=== PATIENT | female | born 1955 | race American Indian/Alaskan Native ===

== ENCOUNTER 2017-02-24 20:37 | Emergency (ER) | payer BC, OTHER ==
[2017-02-24 20:50] VITALS: BP 168/71
[2017-02-24 21:18] LABS: CHLORIDE,CL 100 mmol/L (101-111); SODIUM,NA 130 mmol/L (135-145)
[2017-02-25] MEDS ORDERED: Azithromycin 250 MG Tab PO ONE (00:56)
[2017-02-25] MEDS ORDERED: Benzonatate 100 MG Cap PO ONE (00:56)
--- NOTE | 2017-02-25 01:06 | EDM.PDOC ---
ED HISTORY OF PRESENT ILLNESS - General Chief Complaint: Chest Pain Stated Complaint: CHEST PAIN [id number] Time Seen by Provider: 02/25/17 00:55 Source of Information: Reports: Patient History Limitations: Reports: No limitations - History of Present Illness INITIAL COMMENTS - FREE TEXT/NARRATIVE: This 61 yo female patient reports to the ED with a 1 1/2 week history of a cough which now gives her chest pain when she coughs. The patient reports she has not been seen in the clinic for these symptoms, but tried today (could not get an appointment). The patient has been taking OTC cough medications for temporary symptom relief. Symptom Onset Date: 02/14/17 Timing/Duration: Reports: Constant, Getting worse Severity: moderate Location, General: Reports: chest Quality: Reports: Dull Worsens with: Reports: Other (coughing) Associated Symptoms (General): Reports: chest pain (due to cough), cough Treatments [employer]: Reports: Other medication(s) - Related Data Allergies/ADRs: Allergies Allergy/AdvReac Type Severity Reaction Status Date / Time sulfamethoxazole Allergy Nausea and Verified 03/10/15 09:37 [From Bactrim] Vomiting trimethoprim [From Bactrim] Allergy Nausea and Verified 03/10/15 09:37 Vomiting KEFLE Allergy Rash Uncoded 03/10/15 09:37 Home Meds: Home Meds sitaGLIPtin Phos/Metformin HCl [Janumet 50-500 mg Tablet] 1 each PO BID [History] Aspirin [Ecotrin] 81 mg PO DAILY 01/13/15 [History] Calcium Carbonate/Vitamin D3 [Calcium 250+D] 1 tab PO BID 01/13/15 [History] Losartan Potassium [Losartan Potassium] 25 mg PO DAILY 02/24/17 [History] Past Medical History Cardiovascular History: Reports: Hypertension, Stents Endocrine/Metabolic History: Reports: Diabetes, type II Social & Family History - Tobacco Use Smoking Status *Q: Current Every Day Smoker Years of Tobacco use: 45 Packs/Tins Daily: 0.3 Used Tobacco, but Quit: No Second Hand Smoke Exposure: Yes - Alcohol Use Days Per Week of Alcohol Use: 0 - Recreational Drug Use Recreational Drug Use: No ED ROS GENERAL - Review of Systems Review Of Systems: ROS reveals no pertinent complaints other than HPI. ED EXAM, GENERAL - Physical Exam Exam: See Below Exam Limited By: No limitations General Appearance: alert, WD/WN, mild distress Eye Exam: bilateral eye: EOMI, normal inspection, PERRL Ears: normal external exam, normal canal, hearing grossly normal, normal TMs Nose: normal inspection, normal mucosa, no blood Throat/Mouth: Normal inspection, Normal lips, Normal teeth, Normal gums, Normal oropharynx, Normal voice, No airway compromise Head: atraumatic, normocephalic Neck: normal inspection, supple, non-tender, full range of motion Respiratory/Chest: no respiratory distress, no accessory muscle use, chest non- tender, rhonchi (diffuse) Cardiovascular: normal peripheral pulses, regular rate, rhythm, no edema, no gallop, no JVD, no murmur, no rub GI/Abdominal: normal bowel sounds, soft, non tender, no organomegaly, no distention, no abnormal bruit, no mass (Female) Exam: Deferred Rectal (Female) Exam: Deferred Back Exam: normal inspection, full range of motion, NT Extremities: normal inspection, normal range of motion, non-tender, normal capillary refill, no pedal edema Neurological: alert, oriented, CN II-XII intact, normal cognition, normal gait, normal reflexes, no motor/sensory deficits Psychiatric: normal affect, normal mood Skin Exam: Warm, Dry, Intact, Normal color, No rash Lymphatic: no adenopathy Course - Vital Signs Last Recorded V/S: Last Vital Signs Temp 37.2 C 02/24/17 20:39 Pulse 84 02/24/17 20:39 Resp 18 02/24/17 20:39 BP 168/71 H 02/24/17 20:39 Pulse Ox 98 02/24/17 20:39 - Orders/Labs/Meds Orders: Active Orders 24 hr Category Date Time Status EKG Documentation Completion [RC] URGENT Care 02/24/17 20:49 Active Labs: Laboratory Tests 02/24/17 02/24/17 Range/Units 20:55 20:55 WBC 11.3 H (5.0-10.0) 10^3/uL RBC 3.35 L (4.2-5.4) 10^6/uL Hgb 9.8 L (12.0-16.0) g/dL Hct 29.7 L (37.0-47.0) % MCV 88.7 (80-100) fL MCH 29.3 (27.0-34.0) pg MCHC 33.0 (33.0-35.0) g/dL Plt Count 313 (150-450) 10^3/uL Neut % (Auto) 55.7 (42.2-75.2) % Lymph % (Auto) 29.0 (20.5-50.1) % [place] % (Auto) 11.6 H (2-8) % Eos % (Auto) 3.3 H (1.0-3.0) % Baso % (Auto) 0.4 (0.0-1.0) % Sodium 130 L (135-145) mmol/L Potassium 4.3 (3.6-5.0) mmol/L Chloride 100 L (101-111) mmol/L Carbon Dioxide 23.0 (21.0-31.0) mmol/L Anion Gap 11.3 BUN 30 H (7-18) mg/dL Creatinine 2.0 H (0.6-1.3) mg/dL Est Cr Clr Drug Dosing 20.68 mL/min Estimated GFR (MDRD) 25 BUN/Creatinine Ratio 15.00 Glucose 244 H (74-105) mg/dL Calcium 8.5 (8.4-10.2) mg/dl Total Bilirubin 0.4 (0.2-1.0) mg/dL AST 15 (10-42) IU/L ALT 11 (10-60) IU/L Alkaline Phosphatase 83 (42-121) IU/L Troponin I < 0.02 (0.00-0.02) ng/ml Total Protein 7.3 (6.7-8.2) g/dl Albumin 3.5 (3.2-5.5) g/dl Globulin 3.8 Albumin/Globulin Ratio 0.92 Meds: Medications Discontinued Medications Generic Name Dose Route Start Last Admin Trade Name Freq PRN Reason Stop Dose Admin Azithromycin 500 mg 02/25/17 00:56 Zithromax PO 02/25/17 00:57 ONETIME ONE Benzonatate 200 mg 02/25/17 00:56 Tessalon Perles PO 02/25/17 00:57 ONETIME ONE Departure - Departure Time of Disposition: 01:03 Disposition: Home, Self-Care 01 Condition: fair Clinical Impression: Bronchitis Instructions: Acute Bronchitis, [id number] Forms: ED Department Discharge Care Plan Goals: The patient was advised of the examination, lab, EKG and x-ray results during her visit. The patient was given a dose of Azithromycin and Tessalon Perles while in the ED. The patient was discharged with a script for Azithromycin (250 mg) #4 to take 1 by mouth daily and Tessalon Perles (200 mg) #30 to take 1 by mouth 3 times per day as needed. If the patient has any additional symptoms or concerns, the patient should follow-up with her primary care facility. - My Orders Last 24 Hours: My Active Orders 02/24/17 20:49 EKG Documentation Completion [RC] URGENT - Assessment/Plan Last 24 Hours: My Active Orders 02/24/17 20:49 EKG Documentation Completion [RC] URGENT
--- NOTE | 2017-03-19 14:46 | EKG ---
02/24/2017 - DAI RODRIGUEZ - EKG per my reading, shows sinus rhythm at a rate of 83. [facility] /[id number]
== END 2017-02-25 01:13 | disposition home or self-care (01) ==
LOC: DL.ED 20:37
DX: J40 Bronchitis, not specified as acute or chronic (principal); I10 Essential (primary) hypertension; E11.9 Type 2 diabetes mellitus without complications; F17.210 Nicotine dependence, cigarettes, uncomplicated; Z79.82 Long term (current) use of aspirin; Z79.899 Other long term (current) drug therapy; Z88.2 Allergy status to sulfonamides; Z88.1 Allergy status to other antibiotic agents
CPT/HCPCS: 36415; 71010; 80053; 84484; 85025; 93005; 99283; A9270

== ENCOUNTER 2022-12-09 05:22 | Day surgery (SDC) | payer MEDICARE, OTHER ==
[2022-12-09] MEDS ORDERED: Midazolam 1 MG/ML 2 ML SDV IV ONE ×3 (05:23→06:32)
[2022-12-09] MEDS ORDERED: fentaNYL 100 MCG/2 ML SDV IV ONE ×3 (05:23→06:31)
[2022-12-09] MEDS ORDERED: Dextrose 5%-0.45% NaCl 1,000 ML IV SCH (05:30)
[2022-12-09] MEDS ORDERED: Midazolam 1 MG/ML 2 ML SDV ONE (06:15)
[2022-12-09] MEDS ORDERED: fentaNYL 100 MCG/2 ML SDV ONE (06:16)
[2022-12-09 13:00] VITALS: BP 168/79; PULSE 74
== END 2022-12-09 09:30 | disposition home or self-care (01) ==
LOC: DL.ENDO 05:22
PROVIDERS: ATTEND Internal Medicine Gastroenterology
DX: K29.80 Duodenitis without bleeding (principal); K29.50 Unspecified chronic gastritis without bleeding; B96.81 Helicobacter pylori [H. pylori] as the cause of diseases classified elsewhere; D50.9 Iron deficiency anemia, unspecified; E78.5 Hyperlipidemia, unspecified; I25.10 Atherosclerotic heart disease of native coronary artery without angina pectoris; K21.9 Gastro-esophageal reflux disease without esophagitis; I12.9 Hypertensive chronic kidney disease with stage 1 through stage 4 chronic kidney disease, or unspecified chronic kidney disease; E11.22 Type 2 diabetes mellitus with diabetic chronic kidney disease; N18.9 Chronic kidney disease, unspecified; D63.1 Anemia in chronic kidney disease; F17.210 Nicotine dependence, cigarettes, uncomplicated; Z98.890 Other specified postprocedural states; Z79.82 Long term (current) use of aspirin; Z88.2 Allergy status to sulfonamides; Z95.5 Presence of coronary angioplasty implant and graft; Z79.899 Other long term (current) drug therapy
CPT/HCPCS: 87077; 88305; J2250; J3010; J7042

== ENCOUNTER 2022-12-15 19:54 | Emergency (ER) | payer OTHER, MEDICARE ==
[2022-12-15 20:33] VITALS: BP 147/69; PULSE 67
[2022-12-15 21:00] LABS: ANION GAP 15.8 mEq/L (7-13); CHLORIDE,CL 110 mmol/L (98-107); SODIUM,NA 140 mmol/L (136-145)
[2022-12-15 21:06] LABS: ESTIMATED GFR 26 mL/min (>=60)
== END 2022-12-15 21:22 | disposition home or self-care (01) ==
LOC: DL.ED 19:54
DX: E11.649 Type 2 diabetes mellitus with hypoglycemia without coma (principal); I12.9 Hypertensive chronic kidney disease with stage 1 through stage 4 chronic kidney disease, or unspecified chronic kidney disease; E11.22 Type 2 diabetes mellitus with diabetic chronic kidney disease; N18.9 Chronic kidney disease, unspecified; Z88.2 Allergy status to sulfonamides; Z88.1 Allergy status to other antibiotic agents; Z79.82 Long term (current) use of aspirin; Z79.4 Long term (current) use of insulin; Z79.899 Other long term (current) drug therapy
CPT/HCPCS: 36415; 80053; 82947; 83605; 84484; 85025; 87040; 93005; 93010; 99283; 99284

== ENCOUNTER 2023-01-03 12:45 | Inpatient (IN) | payer MEDICARE, OTHER ==
[2023-01-03] MEDS ORDERED: Sodium Chloride 0.9% 1,000 ML IV ONE (13:46)
[2023-01-03 14:00] LABS: ANION GAP 18.8 mEq/L (7-13)
[2023-01-03] MEDS ORDERED: Ondansetron 4 MG/2 ML SDV IVPUSH PRN (17:40)
[2023-01-03] MEDS ORDERED: Acetaminophen 325 MG Tab PO PRN (17:40)
[2023-01-03] MEDS ORDERED: Acetaminophen/HYDROcodone 325-5 MG Tab PO PRN (17:40)
[2023-01-03] MEDS ORDERED: Loperamide 2 MG Cap PO PRN (17:47)
[2023-01-03] MEDS: Sodium Chloride 0.9% 1,000 ML IV SCH (17:59)
[2023-01-03] MEDS ORDERED: Non-Formulary Medication 1 Each PO SCH (21:00)
[2023-01-03] MEDS: Heparin Sodium 5,000 Units/ML Vial SUBCUT SCH (21:01)
[2023-01-04 07:07] LABS: ANION GAP 14.1 mEq/L (7-13)
[2023-01-04] MEDS: Sodium Chloride 0.9% 1,000 ML IV SCH (07:13)
[2023-01-04] MEDS: Heparin Sodium 5,000 Units/ML Vial SUBCUT SCH ×2 (09:34→20:42)
[2023-01-04] MEDS ORDERED: 50% Dextrose in Water 50 ML Syringe IVPUSH PRN (12:08)
[2023-01-04] MEDS ORDERED: Glucagon,Human Recombinant 1 MG Vial IM PRN (12:08)
[2023-01-04] MEDS ORDERED: Loperamide 2 MG Cap PO PRN (12:16)
[2023-01-04] MEDS: Carboxymethylcellulose Sodium 1% Ophth Gel 0.4 ML UD EYEBOTH SCH ×3 (15:16→21:55)
[2023-01-04] MEDS: Insulin Lispro 100 Units/ML 3 ML Vial SUBCUT SCH ×2 (17:00→20:49)
[2023-01-04] MEDS ORDERED: MVI, Adult with Vitamin K 10 ML SDV ONE (17:18)
[2023-01-04] MEDS ORDERED: MVI, Adult with Vitamin K 10 ML, Folic Acid 1 MG, Thiamine 100 MG in Lactated Ringers 1... IV ONE ×4 (18:00)
[2023-01-04] MEDS: Simvastatin 40 MG Tab PO SCH (20:41)
[2023-01-04] MEDS: Gabapentin 300 MG Cap PO SCH (20:42)
[2023-01-04] MEDS ORDERED: Non-Formulary Medication 1 Each (Gabapentin 600 MG Tablet) PO SCH (21:00)
[2023-01-05] MEDS: Sodium Chloride 0.9% 1,000 ML IV SCH ×2 (01:37→16:33)
[2023-01-05 09:27] LABS: ANION GAP 12.4 mEq/L (7-13)
[2023-01-05] MEDS: Aspirin 81 MG Tab.EC PO SCH (09:36)
[2023-01-05] MEDS: Heparin Sodium 5,000 Units/ML Vial SUBCUT SCH ×2 (09:37→20:23)
[2023-01-05] MEDS: Carboxymethylcellulose Sodium 1% Ophth Gel 0.4 ML UD EYEBOTH SCH ×4 (09:38→20:23)
[2023-01-05] MEDS: Insulin Lispro 100 Units/ML 3 ML Vial SUBCUT SCH ×3 (09:40→17:27)
[2023-01-05] MEDS ORDERED: Pantoprazole 40 MG Vial IVPUSH ONE (12:00)
[2023-01-05] MEDS: Famotidine 20 MG Tab PO SCH (20:22)
[2023-01-05] MEDS: Gabapentin 300 MG Cap PO SCH (20:22)
[2023-01-05] MEDS: Simvastatin 40 MG Tab PO SCH (20:23)
[2023-01-06] MEDS: Sodium Chloride 0.9% 1,000 ML IV SCH (05:49)
[2023-01-06 06:44] LABS: ANION GAP 12.2 mEq/L (7-13)
[2023-01-06] MEDS ORDERED: Magnesium Sulfate/Water 2 GM in Premix Bag 1 BAG IV ONE (07:45)
[2023-01-06] MEDS ORDERED: Insulin Lispro 100 Units/ML 3 ML Vial SUBCUT SCH (08:00)
[2023-01-06] MEDS: Heparin Sodium 5,000 Units/ML Vial SUBCUT SCH (08:34)
[2023-01-06] MEDS: Aspirin 81 MG Tab.EC PO SCH (08:34)
[2023-01-06] MEDS: Famotidine 20 MG Tab PO SCH (08:35)
[2023-01-06] MEDS: Carboxymethylcellulose Sodium 1% Ophth Gel 0.4 ML UD EYEBOTH SCH (08:52)
[2023-01-06 12:13] VITALS: BP 97/45; PULSE 60
== END 2023-01-06 12:23 | disposition swing bed (61) | DRG 683 ==
LOC: DL.ED 12:45 → DL.MS 15:07
PROVIDERS: ADMIT Internal Medicine; ATTEND Internal Medicine
DX: N17.9 Acute kidney failure, unspecified (principal); E87.20 Acidosis, unspecified; E87.5 Hyperkalemia; I25.10 Atherosclerotic heart disease of native coronary artery without angina pectoris; I12.9 Hypertensive chronic kidney disease with stage 1 through stage 4 chronic kidney disease, or unspecified chronic kidney disease; E11.22 Type 2 diabetes mellitus with diabetic chronic kidney disease; N18.30 Chronic kidney disease, stage 3 unspecified; E78.5 Hyperlipidemia, unspecified; K86.89 Other specified diseases of pancreas; E86.0 Dehydration; R19.7 Diarrhea, unspecified; D53.9 Nutritional anemia, unspecified; E87.8 Other disorders of electrolyte and fluid balance, not elsewhere classified; E11.65 Type 2 diabetes mellitus with hyperglycemia; K76.0 Fatty (change of) liver, not elsewhere classified; E83.42 Hypomagnesemia; K57.30 Diverticulosis of large intestine without perforation or abscess without bleeding; I95.89 Other hypotension; Z90.49 Acquired absence of other specified parts of digestive tract; Z95.5 Presence of coronary angioplasty implant and graft; Z79.4 Long term (current) use of insulin; Z79.52 Long term (current) use of systemic steroids; Z79.82 Long term (current) use of aspirin; Z79.899 Other long term (current) drug therapy; Z88.2 Allergy status to sulfonamides; Z88.8 Allergy status to other drugs, medicaments and biological substances; Z88.1 Allergy status to other antibiotic agents; Z98.42 Cataract extraction status, left eye; Z98.41 Cataract extraction status, right eye; Z98.890 Other specified postprocedural states
CPT/HCPCS: 36415; 72195; 74181; 76770; 80048; 80053; 81001; 82150; 82272; 82947; 83605; 83690; 83735; 85025; 85651; 86140; 87045; 87046; 87086; 87088; 87186; 87328; 87329; 87493; 87899; 97110-GP; 97116-GP; 97161-GP; 97165-GO; 97530-GO; 99222; 99232; 99238; A9270-GY; C9113; J1644; J3411; J3475; J3490; J7030; J7120

== ENCOUNTER 2023-01-06 12:23 | Inpatient (IN) | payer MEDICARE, OTHER ==
[~2023-01-06 12:23] MED LIST: 50% Dextrose in Water 50 ML Syringe IVPUSH PRN; Acetaminophen 325 MG Tab PO PRN; Acetaminophen/HYDROcodone 325-5 MG Tab PO PRN; Glucagon,Human Recombinant 1 MG Vial IM PRN
[2023-01-06] MEDS ORDERED: Non-Formulary Medication 1 Each PO SCH (13:00)
[2023-01-06] MEDS: Amylase/Lipase/Protease 12,000 Unit Cap.CR PO SCH (17:15)
[2023-01-06] MEDS: Insulin Lispro 100 Units/ML 3 ML Vial SUBCUT SCH (17:16)
[2023-01-06] MEDS: Famotidine 20 MG Tab PO SCH (20:51)
[2023-01-06] MEDS: Gabapentin 300 MG Cap PO SCH (20:51)
[2023-01-06] MEDS: Simvastatin 40 MG Tab PO SCH (20:51)
[2023-01-06] MEDS: Heparin Sodium 5,000 Units/ML Vial SUBCUT SCH (20:51)
[2023-01-07 06:59] LABS: ANION GAP 15.8 mEq/L (7-13)
[2023-01-07] MEDS: Famotidine 20 MG Tab PO SCH ×2 (08:19→22:08)
[2023-01-07] MEDS: Heparin Sodium 5,000 Units/ML Vial SUBCUT SCH ×2 (08:19→22:13)
[2023-01-07] MEDS: Aspirin 81 MG Tab.EC PO SCH (08:19)
[2023-01-07] MEDS: Amylase/Lipase/Protease 12,000 Unit Cap.CR PO SCH ×3 (08:19→17:07)
[2023-01-07] MEDS: Insulin Lispro 100 Units/ML 3 ML Vial SUBCUT SCH ×3 (08:20→17:07)
[2023-01-07] MEDS: Loperamide 2 MG Cap PO PRN ×2 (09:11→22:11)
[2023-01-07] MEDS ORDERED: Midodrine 2.5 MG Tab PO PRN (19:35)
[2023-01-07] MEDS ORDERED: Sodium Bicarbonate 50 MEQ in Dextrose 5%-0.45% NaCl 1,000 ML IV SCH (19:45)
[2023-01-07] MEDS: Sodium Bicarbonate 650 MG Tab PO SCH (22:09)
[2023-01-07] MEDS: Gabapentin 300 MG Cap PO SCH (22:09)
[2023-01-07] MEDS: Simvastatin 40 MG Tab PO SCH (22:09)
[2023-01-07] MEDS: Midodrine 2.5 MG Tab PO PRN (22:46)
[2023-01-08 06:54] LABS: ANION GAP 13.9 mEq/L (7-13)
[2023-01-08] MEDS: Amylase/Lipase/Protease 12,000 Unit Cap.CR PO SCH ×3 (08:01→17:24)
[2023-01-08] MEDS: Insulin Lispro 100 Units/ML 3 ML Vial SUBCUT SCH ×3 (08:02→17:25)
[2023-01-08] MEDS: Heparin Sodium 5,000 Units/ML Vial SUBCUT SCH ×2 (08:03→21:06)
[2023-01-08] MEDS: Loperamide 2 MG Cap PO PRN (08:05)
[2023-01-08] MEDS: Sodium Bicarbonate 650 MG Tab PO SCH ×2 (08:06→21:04)
[2023-01-08] MEDS: Famotidine 20 MG Tab PO SCH (08:06)
[2023-01-08] MEDS: Aspirin 81 MG Tab.EC PO SCH (08:06)
[2023-01-08] MEDS: Amylase/Lipase/Protease 12,000 Unit Cap.CR PO PRN (11:49)
[2023-01-08 13:45] LABS: ANION GAP 15.3 mEq/L (7-13)
[2023-01-08] MEDS ORDERED: Sodium Chloride 0.9% 1,000 ML IV ONE (13:56)
[2023-01-08] MEDS: Pantoprazole 40 MG Tab.CR PO SCH (17:23)
[2023-01-08 18:14] LABS: ANION GAP 14.6 mEq/L (7-13)
[2023-01-08] MEDS ORDERED: Gabapentin 100 MG Cap PO SCH (21:00)
[2023-01-08] MEDS: Simvastatin 40 MG Tab PO SCH (21:05)
[2023-01-09] MEDS: Amylase/Lipase/Protease 12,000 Unit Cap.CR PO PRN (03:34)
[2023-01-09] MEDS: Pantoprazole 40 MG Tab.CR PO SCH ×2 (06:18→17:03)
[2023-01-09] MEDS: Insulin Lispro 100 Units/ML 3 ML Vial SUBCUT SCH ×3 (08:03→17:03)
[2023-01-09] MEDS: Amylase/Lipase/Protease 12,000 Unit Cap.CR PO SCH ×3 (08:03→17:03)
[2023-01-09] MEDS: Aspirin 81 MG Tab.EC PO SCH (08:04)
[2023-01-09] MEDS: Heparin Sodium 5,000 Units/ML Vial SUBCUT SCH ×2 (08:04→22:09)
[2023-01-09] MEDS: Sodium Bicarbonate 650 MG Tab PO SCH ×2 (08:04→22:06)
[2023-01-09] MEDS ORDERED: Hydrochlorothiazide 25 MG Tab PO ONE (11:24)
[2023-01-09] MEDS: Thiamine 100 MG Tab PO SCH (22:06)
[2023-01-09] MEDS: Simvastatin 40 MG Tab PO SCH (22:06)
[2023-01-09] MEDS: Gabapentin 100 MG Cap PO SCH (22:07)
[2023-01-10] MEDS: Pantoprazole 40 MG Tab.CR PO SCH ×2 (06:08→16:50)
[2023-01-10] MEDS: Amylase/Lipase/Protease 12,000 Unit Cap.CR PO SCH ×3 (08:06→16:50)
[2023-01-10] MEDS: Heparin Sodium 5,000 Units/ML Vial SUBCUT SCH ×2 (08:07→20:19)
[2023-01-10] MEDS: Insulin Lispro 100 Units/ML 3 ML Vial SUBCUT SCH ×3 (08:08→16:51)
[2023-01-10] MEDS: Sodium Bicarbonate 650 MG Tab PO SCH ×2 (08:09→20:18)
[2023-01-10] MEDS: Aspirin 81 MG Tab.EC PO SCH (08:09)
[2023-01-10] MEDS: Loperamide 2 MG Cap PO PRN (09:43)
[2023-01-10] MEDS: Prenatal Multivitamin with Calcium/Folic Acid/Iron Tab PO SCH (17:58)
[2023-01-10 18:22] LABS: ANION GAP 14.6 mEq/L (7-13)
[2023-01-10] MEDS: Gabapentin 100 MG Cap PO SCH (20:17)
[2023-01-10] MEDS: Simvastatin 40 MG Tab PO SCH (20:18)
[2023-01-10] MEDS: Amylase/Lipase/Protease 12,000 Unit Cap.CR PO PRN (20:18)
[2023-01-10] MEDS: Thiamine 100 MG Tab PO SCH (20:18)
[2023-01-11] MEDS: Pantoprazole 40 MG Tab.CR PO SCH ×2 (05:50→16:33)
[2023-01-11] MEDS: Sodium Bicarbonate 650 MG Tab PO SCH ×2 (08:59→20:43)
[2023-01-11] MEDS: Insulin Lispro 100 Units/ML 3 ML Vial SUBCUT SCH ×3 (09:00→17:22)
[2023-01-11] MEDS: Aspirin 81 MG Tab.EC PO SCH (09:00)
[2023-01-11] MEDS: Heparin Sodium 5,000 Units/ML Vial SUBCUT SCH ×2 (09:00→20:41)
[2023-01-11] MEDS: Amylase/Lipase/Protease 12,000 Unit Cap.CR PO SCH ×4 (09:07→16:33)
[2023-01-11] MEDS: Prenatal Multivitamin with Calcium/Folic Acid/Iron Tab PO SCH (17:23)
[2023-01-11] MEDS: Gabapentin 100 MG Cap PO SCH (20:41)
[2023-01-11] MEDS: Simvastatin 40 MG Tab PO SCH (20:42)
[2023-01-11] MEDS: Loperamide 2 MG Cap PO PRN (20:42)
[2023-01-11] MEDS: Midodrine 2.5 MG Tab PO PRN (20:42)
[2023-01-11] MEDS: Thiamine 100 MG Tab PO SCH (20:43)
[2023-01-12] MEDS: Pantoprazole 40 MG Tab.CR PO SCH ×3 (04:16→16:47)
[2023-01-12 06:16] LABS: ANION GAP 14.9 mEq/L (7-13)
[2023-01-12] MEDS: Amylase/Lipase/Protease 12,000 Unit Cap.CR PO SCH ×3 (07:42→16:48)
[2023-01-12 07:56] VITALS: BP 128/59; PULSE 82
[2023-01-12] MEDS: Aspirin 81 MG Tab.EC PO SCH (08:18)
[2023-01-12] MEDS: Loperamide 2 MG Cap PO PRN (08:18)
[2023-01-12] MEDS: Sodium Bicarbonate 650 MG Tab PO SCH (08:18)
[2023-01-12] MEDS: Insulin Lispro 100 Units/ML 3 ML Vial SUBCUT SCH ×2 (08:19→12:16)
[2023-01-12] MEDS: Heparin Sodium 5,000 Units/ML Vial SUBCUT SCH (08:19)
[2023-01-12] MEDS ORDERED: Sodium Chloride 0.9% 500 ML IV SCH (10:30)
[2023-01-12] MEDS ORDERED: Dextrose 5%-0.45% NaCl 1,000 ML IV SCH (16:00)
[2023-01-12] MEDS ORDERED: Gabapentin 100 MG Cap PO SCH (21:00)
[2023-01-13] MEDS ORDERED: Sodium Bicarbonate 650 MG Tab PO SCH (09:00)
== END 2023-01-12 17:20 | DRG 439 ==
LOC: DL.MS 12:23
PROVIDERS: ADMIT Internal Medicine; ATTEND Internal Medicine
DX: K86.89 Other specified diseases of pancreas (principal); E87.20 Acidosis, unspecified; N17.9 Acute kidney failure, unspecified; Z93.0 Tracheostomy status; E78.5 Hyperlipidemia, unspecified; I25.10 Atherosclerotic heart disease of native coronary artery without angina pectoris; I12.9 Hypertensive chronic kidney disease with stage 1 through stage 4 chronic kidney disease, or unspecified chronic kidney disease; K57.90 Diverticulosis of intestine, part unspecified, without perforation or abscess without bleeding; N18.30 Chronic kidney disease, stage 3 unspecified; E11.22 Type 2 diabetes mellitus with diabetic chronic kidney disease; E11.65 Type 2 diabetes mellitus with hyperglycemia; D63.1 Anemia in chronic kidney disease; Z90.49 Acquired absence of other specified parts of digestive tract; Z79.4 Long term (current) use of insulin; Z79.82 Long term (current) use of aspirin; Z79.899 Other long term (current) drug therapy; Z95.5 Presence of coronary angioplasty implant and graft; Z79.52 Long term (current) use of systemic steroids; Z98.42 Cataract extraction status, left eye; Z98.41 Cataract extraction status, right eye
CPT/HCPCS: 36415; 80048; 82947; 83735; 85025; 85651; 86140; 97110-GP; 97116-GP; 97161-GP; 97165-GO; 97530-GO; 97535-GO; A9270-GY; J1644; J1815-GY; J3490; J7030; J7042

== ENCOUNTER 2023-01-18 10:44 | Inpatient (IN) | payer MEDICARE, OTHER ==
[2023-01-19] MEDS ORDERED: Amylase/Lipase/Protease 12,000 Unit Cap.CR PO SCH (17:14)
[2023-01-19] MEDS ORDERED: Acetaminophen 325 MG Tab PO PRN (18:59)
[2023-01-19] MEDS ORDERED: Promethazine 25 MG/ML SDV IM PRN (19:06)
[2023-01-19] MEDS ORDERED: Ondansetron 4 MG Tab.DIS PO PRN ×2 (19:06→19:10)
[2023-01-19] MEDS ORDERED: Polyethylene Glycol 3350 Powder 17 GM Packet PO PRN (19:06)
[2023-01-19] MEDS ORDERED: Albuterol/Ipratropium 3.0-0.5 MG/3 ML Neb Soln NEB PRN (19:06)
[2023-01-19] MEDS ORDERED: Magnesium Hydroxide 400 MG/5 ML Susp 30 ML Cup PO PRN (19:06)
[2023-01-19] MEDS ORDERED: Metoclopramide 10 MG Tab PO PRN (19:10)
[2023-01-19] MEDS ORDERED: Midodrine 2.5 MG Tab PO PRN (19:10)
[2023-01-19] MEDS ORDERED: Amylase/Lipase/Protease 12,000 Unit Cap.CR PO PRN (19:15)
[2023-01-19] MEDS ORDERED: 50% Dextrose in Water 50 ML Syringe IVPUSH PRN (19:16)
[2023-01-19] MEDS ORDERED: Glucagon,Human Recombinant 1 MG Vial IM PRN (19:16)
[2023-01-19] MEDS: Pantoprazole 40 MG Tab.CR PO SCH (20:41)
[2023-01-19] MEDS: Sodium Bicarbonate 650 MG Tab PO SCH (20:41)
[2023-01-19] MEDS: Thiamine 100 MG Tab PO SCH (20:41)
[2023-01-19] MEDS: Acetaminophen 500 MG Tab PO SCH (20:41)
[2023-01-19] MEDS: Gabapentin 100 MG Cap PO SCH (20:42)
[2023-01-19] MEDS: Carboxymethylcellulose Sodium 1% Ophth Gel 0.4 ML UD EYEBOTH SCH (20:42)
[2023-01-19] MEDS: Insulin Glarg,Human.Rec.Analog 100 Unit/ML SUBCUT SCH (20:44)
[2023-01-20] MEDS: Amylase/Lipase/Protease 12,000 Unit Cap.CR PO SCH ×3 (07:52→16:50)
[2023-01-20] MEDS: Loperamide 2 MG Cap PO PRN ×4 (07:52→20:57)
[2023-01-20] MEDS: Insulin Lispro 100 Units/ML 3 ML Vial SUBCUT SCH ×3 (07:57→17:17)
[2023-01-20] MEDS: Sodium Bicarbonate 650 MG Tab PO SCH ×3 (09:16→20:49)
[2023-01-20] MEDS: Simvastatin 10 MG Tab PO SCH (09:16)
[2023-01-20] MEDS: Aspirin 81 MG Tab.Chew PO SCH (09:17)
[2023-01-20] MEDS: Pantoprazole 40 MG Tab.CR PO SCH ×2 (09:17→20:49)
[2023-01-20] MEDS: Metoprolol Succinate 25 MG Tab.ER PO SCH (09:17)
[2023-01-20] MEDS: Acetaminophen 500 MG Tab PO SCH ×3 (09:18→20:48)
[2023-01-20] MEDS: Carboxymethylcellulose Sodium 1% Ophth Gel 0.4 ML UD EYEBOTH SCH ×4 (09:21→20:51)
[2023-01-20] MEDS: CHOLESTYRAMINE PO SCH (12:01)
[2023-01-20] MEDS: SODIUM ZIRCONIUM CYCLOSILICATE PO SCH (17:14)
[2023-01-20] MEDS: Gabapentin 100 MG Cap PO SCH (20:49)
[2023-01-20] MEDS: Thiamine 100 MG Tab PO SCH (20:49)
[2023-01-20] MEDS: Melatonin 3 MG Tab PO PRN (20:49)
[2023-01-20] MEDS: Insulin Glarg,Human.Rec.Analog 100 Unit/ML SUBCUT SCH (20:59)
[2023-01-21] MEDS: SODIUM ZIRCONIUM CYCLOSILICATE PO SCH (05:23)
[2023-01-21] MEDS: Amylase/Lipase/Protease 12,000 Unit Cap.CR PO SCH ×3 (07:53→16:58)
[2023-01-21] MEDS: Insulin Lispro 100 Units/ML 3 ML Vial SUBCUT SCH ×3 (08:22→17:27)
[2023-01-21] MEDS: Metoprolol Succinate 25 MG Tab.ER PO SCH (08:47)
[2023-01-21] MEDS: Acetaminophen 500 MG Tab PO SCH ×3 (08:48→21:53)
[2023-01-21] MEDS: Aspirin 81 MG Tab.Chew PO SCH (08:49)
[2023-01-21] MEDS: Sodium Bicarbonate 650 MG Tab PO SCH ×3 (08:49→21:53)
[2023-01-21] MEDS: Pantoprazole 40 MG Tab.CR PO SCH ×2 (08:49→21:53)
[2023-01-21] MEDS: Simvastatin 10 MG Tab PO SCH (08:50)
[2023-01-21] MEDS: Carboxymethylcellulose Sodium 1% Ophth Gel 0.4 ML UD EYEBOTH SCH ×5 (09:01→21:53)
[2023-01-21] MEDS: CHOLESTYRAMINE PO SCH (12:54)
[2023-01-21] MEDS: Gabapentin 100 MG Cap PO SCH (21:52)
[2023-01-21] MEDS: Thiamine 100 MG Tab PO SCH (21:53)
[2023-01-21] MEDS: Melatonin 3 MG Tab PO PRN (21:56)
[2023-01-21] MEDS: Insulin Glarg,Human.Rec.Analog 100 Unit/ML SUBCUT SCH (21:57)
[2023-01-22] MEDS: SODIUM ZIRCONIUM CYCLOSILICATE PO SCH (05:07)
[2023-01-22] MEDS: Amylase/Lipase/Protease 12,000 Unit Cap.CR PO SCH ×3 (07:48→16:49)
[2023-01-22] MEDS: Insulin Lispro 100 Units/ML 3 ML Vial SUBCUT SCH ×3 (07:51→16:49)
[2023-01-22] MEDS: Acetaminophen 500 MG Tab PO SCH ×3 (08:58→21:01)
[2023-01-22] MEDS: Sodium Bicarbonate 650 MG Tab PO SCH ×3 (09:00→21:01)
[2023-01-22] MEDS: Pantoprazole 40 MG Tab.CR PO SCH ×2 (09:00→21:02)
[2023-01-22] MEDS: Simvastatin 10 MG Tab PO SCH (09:00)
[2023-01-22] MEDS: Metoprolol Succinate 25 MG Tab.ER PO SCH (09:01)
[2023-01-22] MEDS: Carboxymethylcellulose Sodium 1% Ophth Gel 0.4 ML UD EYEBOTH SCH ×4 (09:02→21:07)
[2023-01-22] MEDS: Aspirin 81 MG Tab.Chew PO SCH (09:02)
[2023-01-22] MEDS: CHOLESTYRAMINE PO SCH (13:02)
[2023-01-22] MEDS: Loperamide 2 MG Cap PO PRN (16:50)
[2023-01-22] MEDS: Melatonin 3 MG Tab PO PRN (21:01)
[2023-01-22] MEDS: Gabapentin 100 MG Cap PO SCH (21:02)
[2023-01-22] MEDS: Thiamine 100 MG Tab PO SCH (21:04)
[2023-01-22] MEDS: Insulin Glarg,Human.Rec.Analog 100 Unit/ML SUBCUT SCH (21:09)
[2023-01-23] MEDS: SODIUM ZIRCONIUM CYCLOSILICATE PO SCH (05:22)
[2023-01-23 06:48] LABS: ANION GAP 13.1 mEq/L (7-13)
[2023-01-23] MEDS: Amylase/Lipase/Protease 12,000 Unit Cap.CR PO SCH ×3 (08:05→16:54)
[2023-01-23] MEDS: Aspirin 81 MG Tab.Chew PO SCH (08:06)
[2023-01-23] MEDS: Simvastatin 10 MG Tab PO SCH (08:06)
[2023-01-23] MEDS: Acetaminophen 500 MG Tab PO SCH ×3 (08:07→21:17)
[2023-01-23] MEDS: Pantoprazole 40 MG Tab.CR PO SCH ×2 (08:07→21:17)
[2023-01-23] MEDS: Sodium Bicarbonate 650 MG Tab PO SCH ×3 (08:08→21:17)
[2023-01-23] MEDS: Metoprolol Succinate 25 MG Tab.ER PO SCH (08:08)
[2023-01-23] MEDS: Insulin Lispro 100 Units/ML 3 ML Vial SUBCUT SCH ×3 (08:13→16:58)
[2023-01-23] MEDS: Carboxymethylcellulose Sodium 1% Ophth Gel 0.4 ML UD EYEBOTH SCH ×4 (08:13→21:22)
[2023-01-23] MEDS: CHOLESTYRAMINE PO SCH (11:41)
[2023-01-23] MEDS: Ferrous Sulfate 325 MG Tab PO SCH (17:00)
[2023-01-23] MEDS: Gabapentin 100 MG Cap PO SCH (21:17)
[2023-01-23] MEDS: Acetaminophen/HYDROcodone 325-5 MG Tab PO PRN (21:18)
[2023-01-23] MEDS: Thiamine 100 MG Tab PO SCH (21:18)
[2023-01-23] MEDS: Melatonin 3 MG Tab PO PRN (21:18)
[2023-01-24] MEDS: SODIUM ZIRCONIUM CYCLOSILICATE PO SCH (05:06)
[2023-01-24] MEDS: Insulin Lispro 100 Units/ML 3 ML Vial SUBCUT SCH ×3 (07:55→17:17)
[2023-01-24] MEDS: Amylase/Lipase/Protease 12,000 Unit Cap.CR PO SCH ×3 (07:56→16:19)
[2023-01-24] MEDS: Ferrous Sulfate 325 MG Tab PO SCH ×2 (07:56→17:18)
[2023-01-24] MEDS: Metoprolol Succinate 25 MG Tab.ER PO SCH (09:09)
[2023-01-24] MEDS: Pantoprazole 40 MG Tab.CR PO SCH ×2 (09:10→20:49)
[2023-01-24] MEDS: Aspirin 81 MG Tab.Chew PO SCH (09:11)
[2023-01-24] MEDS: Sodium Bicarbonate 650 MG Tab PO SCH ×3 (09:11→20:49)
[2023-01-24] MEDS: Carboxymethylcellulose Sodium 1% Ophth Gel 0.4 ML UD EYEBOTH SCH ×4 (09:11→20:53)
[2023-01-24] MEDS: Acetaminophen 500 MG Tab PO SCH ×3 (09:12→20:49)
[2023-01-24] MEDS: Simvastatin 10 MG Tab PO SCH (09:12)
[2023-01-24] MEDS: Enoxaparin 30 MG/0.3 ML Syringe SUBCUT SCH (12:09)
[2023-01-24] MEDS: CHOLESTYRAMINE PO SCH (12:09)
[2023-01-24] MEDS: Acetaminophen/HYDROcodone 325-5 MG Tab PO PRN ×2 (17:22→20:49)
[2023-01-24] MEDS: HYDROmorphone 0.5 MG/0.5 ML Syringe SUBCUT PRN (18:42)
[2023-01-24] MEDS: Thiamine 100 MG Tab PO SCH (20:49)
[2023-01-24] MEDS: Gabapentin 100 MG Cap PO SCH (20:49)
[2023-01-24] MEDS: Melatonin 3 MG Tab PO PRN (20:49)
[2023-01-25] MEDS: SODIUM ZIRCONIUM CYCLOSILICATE PO SCH (05:24)
[2023-01-25] MEDS: Amylase/Lipase/Protease 12,000 Unit Cap.CR PO SCH ×3 (07:53→16:30)
[2023-01-25] MEDS: Ferrous Sulfate 325 MG Tab PO SCH ×2 (09:06→17:33)
[2023-01-25] MEDS: Insulin Lispro 100 Units/ML 3 ML Vial SUBCUT SCH ×3 (09:07→17:33)
[2023-01-25] MEDS: Aspirin 81 MG Tab.Chew PO SCH (09:07)
[2023-01-25] MEDS: Acetaminophen 500 MG Tab PO SCH ×3 (09:07→20:58)
[2023-01-25] MEDS: Simvastatin 10 MG Tab PO SCH (09:07)
[2023-01-25] MEDS: Metoprolol Succinate 25 MG Tab.ER PO SCH (09:07)
[2023-01-25] MEDS: Enoxaparin 30 MG/0.3 ML Syringe SUBCUT SCH (09:08)
[2023-01-25] MEDS: Carboxymethylcellulose Sodium 1% Ophth Gel 0.4 ML UD EYEBOTH SCH ×2 (09:08→12:13)
[2023-01-25] MEDS: Pantoprazole 40 MG Tab.CR PO SCH ×2 (09:08→20:57)
[2023-01-25] MEDS: Sodium Bicarbonate 650 MG Tab PO SCH ×3 (09:08→20:58)
[2023-01-25] MEDS: CHOLESTYRAMINE PO SCH (12:12)
[2023-01-25] MEDS: Acetaminophen/HYDROcodone 325-5 MG Tab PO PRN (20:57)
[2023-01-25] MEDS: Gabapentin 100 MG Cap PO SCH (20:57)
[2023-01-25] MEDS: Thiamine 100 MG Tab PO SCH (20:57)
[2023-01-26] MEDS: SODIUM ZIRCONIUM CYCLOSILICATE PO SCH (05:35)
[2023-01-26] MEDS: Amylase/Lipase/Protease 12,000 Unit Cap.CR PO SCH ×3 (07:46→16:28)
[2023-01-26] MEDS: Pantoprazole 40 MG Tab.CR PO SCH ×2 (09:18→20:25)
[2023-01-26] MEDS: Ferrous Sulfate 325 MG Tab PO SCH ×2 (09:18→17:33)
[2023-01-26] MEDS: Sodium Bicarbonate 650 MG Tab PO SCH ×3 (09:18→20:27)
[2023-01-26] MEDS: Insulin Lispro 100 Units/ML 3 ML Vial SUBCUT SCH ×3 (09:18→17:33)
[2023-01-26] MEDS: Acetaminophen 500 MG Tab PO SCH ×3 (09:18→20:24)
[2023-01-26] MEDS: Aspirin 81 MG Tab.Chew PO SCH (09:18)
[2023-01-26] MEDS: Metoprolol Succinate 25 MG Tab.ER PO SCH (09:19)
[2023-01-26] MEDS: Enoxaparin 30 MG/0.3 ML Syringe SUBCUT SCH (09:19)
[2023-01-26] MEDS: Simvastatin 10 MG Tab PO SCH ×2 (09:19→20:25)
[2023-01-26 11:09] LABS: ANION GAP 14.7 mEq/L (7-13)
[2023-01-26] MEDS: Levofloxacin 250 MG Tab PO SCH (12:36)
[2023-01-26] MEDS: CHOLESTYRAMINE PO SCH (14:46)
[2023-01-26] MEDS: Gabapentin 100 MG Cap PO SCH ×2 (20:25→21:59)
[2023-01-26] MEDS: Thiamine 100 MG Tab PO SCH (20:25)
[2023-01-26] MEDS: Acetaminophen/HYDROcodone 325-5 MG Tab PO PRN (20:30)
[2023-01-27] MEDS: SODIUM ZIRCONIUM CYCLOSILICATE PO SCH (05:55)
[2023-01-27] MEDS: Insulin Lispro 100 Units/ML 3 ML Vial SUBCUT SCH ×3 (07:50→17:19)
[2023-01-27] MEDS: Aspirin 81 MG Tab.Chew PO SCH (08:39)
[2023-01-27] MEDS: Metoprolol Succinate 25 MG Tab.ER PO SCH (08:40)
[2023-01-27] MEDS: Acetaminophen 500 MG Tab PO SCH ×3 (08:41→20:34)
[2023-01-27] MEDS: Amylase/Lipase/Protease 12,000 Unit Cap.CR PO SCH ×3 (08:42→17:17)
[2023-01-27] MEDS: Sodium Bicarbonate 650 MG Tab PO SCH ×3 (08:43→20:34)
[2023-01-27] MEDS: Pantoprazole 40 MG Tab.CR PO SCH ×2 (08:43→20:28)
[2023-01-27] MEDS: Ferrous Sulfate 325 MG Tab PO SCH ×2 (08:44→17:18)
[2023-01-27] MEDS: Enoxaparin 30 MG/0.3 ML Syringe SUBCUT SCH (08:44)
[2023-01-27] MEDS: Levofloxacin 250 MG Tab PO SCH (11:44)
[2023-01-27] MEDS: CHOLESTYRAMINE PO SCH (12:52)
[2023-01-27] MEDS: Thiamine 100 MG Tab PO SCH (20:27)
[2023-01-27] MEDS: Acetaminophen/HYDROcodone 325-5 MG Tab PO PRN (20:28)
[2023-01-27] MEDS: Gabapentin 100 MG Cap PO SCH (20:28)
[2023-01-27] MEDS: Simvastatin 10 MG Tab PO SCH (20:28)
[2023-01-27] MEDS: Melatonin 3 MG Tab PO PRN (23:07)
[2023-01-28] MEDS: Acetaminophen/HYDROcodone 325-5 MG Tab PO PRN ×2 (01:01→20:28)
[2023-01-28] MEDS: SODIUM ZIRCONIUM CYCLOSILICATE PO SCH (05:46)
[2023-01-28] MEDS: Levofloxacin 250 MG Tab PO SCH (08:00)
[2023-01-28] MEDS: Amylase/Lipase/Protease 12,000 Unit Cap.CR PO SCH ×3 (08:00→17:10)
[2023-01-28] MEDS: Metoprolol Succinate 25 MG Tab.ER PO SCH (08:01)
[2023-01-28] MEDS: Sodium Bicarbonate 650 MG Tab PO SCH ×3 (08:01→20:23)
[2023-01-28] MEDS: Pantoprazole 40 MG Tab.CR PO SCH ×2 (08:04→20:23)
[2023-01-28] MEDS: Ferrous Sulfate 325 MG Tab PO SCH ×2 (08:04→17:10)
[2023-01-28] MEDS: Enoxaparin 30 MG/0.3 ML Syringe SUBCUT SCH (08:04)
[2023-01-28] MEDS: Acetaminophen 500 MG Tab PO SCH ×3 (08:04→20:23)
[2023-01-28] MEDS: Insulin Lispro 100 Units/ML 3 ML Vial SUBCUT SCH ×3 (08:07→17:08)
[2023-01-28] MEDS: Aspirin 81 MG Tab.Chew PO SCH (08:08)
[2023-01-28] MEDS: Cholestyramine/Sucrose Powder 4 GM Packet PO SCH (12:20)
[2023-01-28] MEDS: Loperamide 2 MG Cap PO PRN (14:16)
[2023-01-28] MEDS: Thiamine 100 MG Tab PO SCH (20:22)
[2023-01-28] MEDS: Simvastatin 10 MG Tab PO SCH (20:22)
[2023-01-28] MEDS: Gabapentin 100 MG Cap PO SCH (20:23)
[2023-01-28] MEDS: Melatonin 3 MG Tab PO PRN (20:28)
[2023-01-29] MEDS: SODIUM ZIRCONIUM CYCLOSILICATE PO SCH (05:29)
[2023-01-29] MEDS: Levofloxacin 250 MG Tab PO SCH (09:07)
[2023-01-29] MEDS: Metoprolol Succinate 25 MG Tab.ER PO SCH (09:07)
[2023-01-29] MEDS: Aspirin 81 MG Tab.Chew PO SCH (09:07)
[2023-01-29] MEDS: Amylase/Lipase/Protease 12,000 Unit Cap.CR PO SCH ×3 (09:07→17:16)
[2023-01-29] MEDS: Pantoprazole 40 MG Tab.CR PO SCH ×2 (09:07→20:51)
[2023-01-29] MEDS: Enoxaparin 30 MG/0.3 ML Syringe SUBCUT SCH (09:10)
[2023-01-29] MEDS: Acetaminophen 500 MG Tab PO SCH ×3 (09:10→20:50)
[2023-01-29] MEDS: Sodium Bicarbonate 650 MG Tab PO SCH ×3 (09:10→20:50)
[2023-01-29] MEDS: Ferrous Sulfate 325 MG Tab PO SCH ×2 (09:10→17:16)
[2023-01-29] MEDS: Insulin Lispro 100 Units/ML 3 ML Vial SUBCUT SCH ×3 (09:13→17:16)
[2023-01-29] MEDS: Cholestyramine/Sucrose Powder 4 GM Packet PO SCH (12:00)
[2023-01-29] MEDS: Simvastatin 10 MG Tab PO SCH (20:49)
[2023-01-29] MEDS: Melatonin 3 MG Tab PO PRN (20:50)
[2023-01-29] MEDS: Gabapentin 100 MG Cap PO SCH (20:50)
[2023-01-29] MEDS: Thiamine 100 MG Tab PO SCH (20:51)
[2023-01-29] MEDS: Acetaminophen/HYDROcodone 325-5 MG Tab PO PRN (20:53)
[2023-01-29] MEDS: HYDROmorphone 0.5 MG/0.5 ML Syringe SUBCUT PRN (23:07)
[2023-01-30] MEDS: SODIUM ZIRCONIUM CYCLOSILICATE PO SCH (05:25)
[2023-01-30] MEDS: Levofloxacin 250 MG Tab PO SCH (07:48)
[2023-01-30] MEDS: Amylase/Lipase/Protease 12,000 Unit Cap.CR PO SCH ×3 (08:02→16:45)
[2023-01-30] MEDS: Enoxaparin 30 MG/0.3 ML Syringe SUBCUT SCH (08:02)
[2023-01-30] MEDS: Aspirin 81 MG Tab.Chew PO SCH (08:03)
[2023-01-30] MEDS: Sodium Bicarbonate 650 MG Tab PO SCH ×3 (08:03→20:33)
[2023-01-30] MEDS: Ferrous Sulfate 325 MG Tab PO SCH ×2 (08:04→17:20)
[2023-01-30] MEDS: Metoprolol Succinate 25 MG Tab.ER PO SCH (08:04)
[2023-01-30] MEDS: Pantoprazole 40 MG Tab.CR PO SCH ×2 (08:04→20:33)
[2023-01-30] MEDS: Acetaminophen 500 MG Tab PO SCH ×3 (08:04→20:33)
[2023-01-30] MEDS: Insulin Lispro 100 Units/ML 3 ML Vial SUBCUT SCH ×3 (08:07→17:18)
[2023-01-30] MEDS: Cholestyramine/Sucrose Powder 4 GM Packet PO SCH (12:50)
[2023-01-30] MEDS: Acetaminophen/HYDROcodone 325-5 MG Tab PO PRN (20:31)
[2023-01-30] MEDS: Simvastatin 10 MG Tab PO SCH (20:32)
[2023-01-30] MEDS: Thiamine 100 MG Tab PO SCH (20:33)
[2023-01-30] MEDS: Melatonin 3 MG Tab PO PRN (20:34)
[2023-01-30] MEDS: Gabapentin 100 MG Cap PO SCH (20:34)
[2023-01-31] MEDS: SODIUM ZIRCONIUM CYCLOSILICATE PO SCH (18:33)
[2023-01-31] MEDS: Aspirin 81 MG Tab.Chew PO SCH (18:46)
[2023-01-31] MEDS: Insulin Lispro 100 Units/ML 3 ML Vial SUBCUT SCH ×2 (18:46→19:04)
[2023-01-31] MEDS: Amylase/Lipase/Protease 12,000 Unit Cap.CR PO SCH ×2 (18:47→18:50)
[2023-01-31] MEDS: Ferrous Sulfate 325 MG Tab PO SCH ×2 (18:47→19:06)
[2023-01-31] MEDS: Levofloxacin 250 MG Tab PO SCH (18:47)
[2023-01-31] MEDS: Pantoprazole 40 MG Tab.CR PO SCH ×2 (18:48→20:37)
[2023-01-31] MEDS: Metoprolol Succinate 25 MG Tab.ER PO SCH (18:48)
[2023-01-31] MEDS: Sodium Bicarbonate 650 MG Tab PO SCH ×2 (18:48→20:37)
[2023-01-31] MEDS: Enoxaparin 30 MG/0.3 ML Syringe SUBCUT SCH (18:48)
[2023-01-31] MEDS: Acetaminophen 500 MG Tab PO SCH ×3 (18:49→20:37)
[2023-01-31] MEDS: Cholestyramine/Sucrose Powder 4 GM Packet PO SCH (18:50)
[2023-01-31] MEDS: Gabapentin 100 MG Cap PO SCH (20:37)
[2023-01-31] MEDS: Thiamine 100 MG Tab PO SCH (20:37)
[2023-01-31] MEDS: Simvastatin 10 MG Tab PO SCH (20:37)
[2023-01-31] MEDS: Acetaminophen/HYDROcodone 325-5 MG Tab PO PRN (20:38)
[2023-02-01] MEDS: SODIUM ZIRCONIUM CYCLOSILICATE PO SCH (05:54)
[2023-02-01] MEDS: Amylase/Lipase/Protease 12,000 Unit Cap.CR PO SCH ×3 (08:10→16:16)
[2023-02-01] MEDS: Aspirin 81 MG Tab.Chew PO SCH (08:12)
[2023-02-01] MEDS: Sodium Bicarbonate 650 MG Tab PO SCH ×3 (08:12→20:56)
[2023-02-01] MEDS: Acetaminophen 500 MG Tab PO SCH ×3 (08:13→20:54)
[2023-02-01] MEDS: Ferrous Sulfate 325 MG Tab PO SCH ×2 (08:13→17:06)
[2023-02-01] MEDS: Levofloxacin 250 MG Tab PO SCH (08:13)
[2023-02-01] MEDS: Insulin Lispro 100 Units/ML 3 ML Vial SUBCUT SCH ×3 (08:17→17:07)
[2023-02-01] MEDS: Pantoprazole 40 MG Tab.CR PO SCH ×2 (08:17→20:54)
[2023-02-01] MEDS: Metoprolol Succinate 25 MG Tab.ER PO SCH (08:18)
[2023-02-01] MEDS: Enoxaparin 30 MG/0.3 ML Syringe SUBCUT SCH (08:19)
[2023-02-01 10:10] LABS: ANION GAP 10.4 mEq/L (7-13)
[2023-02-01] MEDS: Cholestyramine/Sucrose Powder 4 GM Packet PO SCH (11:28)
[2023-02-01] MEDS ORDERED: Furosemide 40 MG Tab PO ONE (12:01)
[2023-02-01] MEDS ORDERED: Spironolactone 25 MG Tab PO ONE (12:05)
[2023-02-01] MEDS ORDERED: Potassium Chloride 10 MEQ Tab.ER PO ONE (17:00)
[2023-02-01] MEDS ORDERED: Hydrochlorothiazide 25 MG Tab PO ONE (17:00)
[2023-02-01] MEDS: Simvastatin 10 MG Tab PO SCH (20:52)
[2023-02-01] MEDS: Thiamine 100 MG Tab PO SCH (20:56)
[2023-02-01] MEDS: Gabapentin 100 MG Cap PO SCH (20:56)
[2023-02-01] MEDS: Loperamide 2 MG Cap PO PRN ×2 (21:01→21:02)
[2023-02-01] MEDS: Melatonin 3 MG Tab PO PRN (21:04)
[2023-02-01] MEDS: Acetaminophen/HYDROcodone 325-5 MG Tab PO PRN (21:04)
[2023-02-02] MEDS: SODIUM ZIRCONIUM CYCLOSILICATE PO SCH (05:52)
[2023-02-02] MEDS: Amylase/Lipase/Protease 12,000 Unit Cap.CR PO SCH ×3 (08:12→17:09)
[2023-02-02] MEDS: Insulin Lispro 100 Units/ML 3 ML Vial SUBCUT SCH ×3 (08:12→17:10)
[2023-02-02] MEDS: Ferrous Sulfate 325 MG Tab PO SCH ×2 (09:19→17:09)
[2023-02-02] MEDS: Levofloxacin 250 MG Tab PO SCH (09:20)
[2023-02-02] MEDS: Metoprolol Succinate 25 MG Tab.ER PO SCH (09:21)
[2023-02-02] MEDS: Sodium Bicarbonate 650 MG Tab PO SCH ×3 (09:22→20:32)
[2023-02-02] MEDS: Pantoprazole 40 MG Tab.CR PO SCH ×2 (09:22→20:32)
[2023-02-02] MEDS: Furosemide 20 MG Tab PO SCH ×2 (09:22→15:11)
[2023-02-02] MEDS: Acetaminophen 500 MG Tab PO SCH ×3 (09:23→20:32)
[2023-02-02] MEDS: Spironolactone 25 MG Tab PO SCH (09:23)
[2023-02-02] MEDS: Aspirin 81 MG Tab.Chew PO SCH (09:23)
[2023-02-02] MEDS: Enoxaparin 30 MG/0.3 ML Syringe SUBCUT SCH (09:26)
[2023-02-02] MEDS: Cholestyramine/Sucrose Powder 4 GM Packet PO SCH (12:24)
[2023-02-02] MEDS: Thiamine 100 MG Tab PO SCH (20:29)
[2023-02-02] MEDS: HYDROmorphone 0.5 MG/0.5 ML Syringe SUBCUT PRN (20:29)
[2023-02-02] MEDS: Simvastatin 10 MG Tab PO SCH (20:31)
[2023-02-02] MEDS: Gabapentin 100 MG Cap PO SCH (20:32)
[2023-02-02] MEDS: Melatonin 3 MG Tab PO PRN (20:32)
[2023-02-02] MEDS: Acetaminophen/HYDROcodone 325-5 MG Tab PO PRN (20:33)
[2023-02-03] MEDS: SODIUM ZIRCONIUM CYCLOSILICATE PO SCH (05:26)
[2023-02-03] MEDS: HYDROmorphone 0.5 MG/0.5 ML Syringe SUBCUT PRN ×2 (05:30→11:34)
[2023-02-03] MEDS: Ferrous Sulfate 325 MG Tab PO SCH ×2 (08:30→17:09)
[2023-02-03] MEDS: Amylase/Lipase/Protease 12,000 Unit Cap.CR PO SCH ×3 (08:30→17:09)
[2023-02-03] MEDS: Enoxaparin 30 MG/0.3 ML Syringe SUBCUT SCH (08:40)
[2023-02-03] MEDS: Furosemide 20 MG Tab PO SCH ×2 (08:41→15:35)
[2023-02-03] MEDS: Aspirin 81 MG Tab.Chew PO SCH (08:41)
[2023-02-03] MEDS: Pantoprazole 40 MG Tab.CR PO SCH ×2 (08:42→20:56)
[2023-02-03] MEDS: Metoprolol Succinate 25 MG Tab.ER PO SCH (08:42)
[2023-02-03] MEDS: Levofloxacin 250 MG Tab PO SCH (08:42)
[2023-02-03] MEDS: Sodium Bicarbonate 650 MG Tab PO SCH ×3 (08:42→20:56)
[2023-02-03] MEDS: Acetaminophen 500 MG Tab PO SCH ×3 (08:43→20:56)
[2023-02-03] MEDS: Insulin Lispro 100 Units/ML 3 ML Vial SUBCUT SCH ×3 (08:44→17:12)
[2023-02-03] MEDS: Spironolactone 25 MG Tab PO SCH (08:45)
[2023-02-03] MEDS: Cholestyramine/Sucrose Powder 4 GM Packet PO SCH (11:33)
[2023-02-03] MEDS: Simvastatin 10 MG Tab PO SCH (20:55)
[2023-02-03] MEDS: Acetaminophen/HYDROcodone 325-5 MG Tab PO PRN (20:55)
[2023-02-03] MEDS: Gabapentin 100 MG Cap PO SCH (20:56)
[2023-02-03] MEDS: Thiamine 100 MG Tab PO SCH (20:56)
[2023-02-03] MEDS: Melatonin 3 MG Tab PO PRN (20:56)
[2023-02-04] MEDS: HYDROmorphone 0.5 MG/0.5 ML Syringe SUBCUT PRN ×3 (00:34→21:42)
[2023-02-04] MEDS: SODIUM ZIRCONIUM CYCLOSILICATE PO SCH (05:26)
[2023-02-04] MEDS: Levofloxacin 250 MG Tab PO SCH (07:37)
[2023-02-04] MEDS: Furosemide 20 MG Tab PO SCH ×2 (07:37→15:04)
[2023-02-04] MEDS: Metoprolol Succinate 25 MG Tab.ER PO SCH (08:26)
[2023-02-04] MEDS: Amylase/Lipase/Protease 12,000 Unit Cap.CR PO SCH ×3 (08:26→17:13)
[2023-02-04] MEDS: Acetaminophen 500 MG Tab PO SCH ×3 (08:27→21:42)
[2023-02-04] MEDS: Ferrous Sulfate 325 MG Tab PO SCH ×2 (08:27→18:49)
[2023-02-04] MEDS: Sodium Bicarbonate 650 MG Tab PO SCH ×3 (08:27→21:42)
[2023-02-04] MEDS: Spironolactone 25 MG Tab PO SCH (08:28)
[2023-02-04] MEDS: Insulin Lispro 100 Units/ML 3 ML Vial SUBCUT SCH ×3 (08:28→17:12)
[2023-02-04] MEDS: Enoxaparin 30 MG/0.3 ML Syringe SUBCUT SCH (08:29)
[2023-02-04] MEDS: Aspirin 81 MG Tab.Chew PO SCH (08:53)
[2023-02-04] MEDS: Pantoprazole 40 MG Tab.CR PO SCH ×2 (08:53→21:41)
[2023-02-04] MEDS: Cholestyramine/Sucrose Powder 4 GM Packet PO SCH (12:22)
[2023-02-04] MEDS: Simvastatin 10 MG Tab PO SCH (21:41)
[2023-02-04] MEDS: Thiamine 100 MG Tab PO SCH (21:41)
[2023-02-04] MEDS: Melatonin 3 MG Tab PO PRN (21:42)
[2023-02-04] MEDS: Gabapentin 100 MG Cap PO SCH (21:42)
[2023-02-05] MEDS: SODIUM ZIRCONIUM CYCLOSILICATE PO SCH (05:37)
[2023-02-05] MEDS: Furosemide 20 MG Tab PO SCH ×2 (07:25→15:50)
[2023-02-05] MEDS: Amylase/Lipase/Protease 12,000 Unit Cap.CR PO SCH ×3 (07:26→16:21)
[2023-02-05] MEDS: Acetaminophen 500 MG Tab PO SCH ×3 (08:24→21:59)
[2023-02-05] MEDS: Metoprolol Succinate 25 MG Tab.ER PO SCH (08:25)
[2023-02-05] MEDS: Aspirin 81 MG Tab.Chew PO SCH (08:25)
[2023-02-05] MEDS: Spironolactone 25 MG Tab PO SCH (08:26)
[2023-02-05] MEDS: Ferrous Sulfate 325 MG Tab PO SCH ×2 (08:26→16:59)
[2023-02-05] MEDS: Pantoprazole 40 MG Tab.CR PO SCH ×2 (08:26→21:59)
[2023-02-05] MEDS: Sodium Bicarbonate 650 MG Tab PO SCH ×3 (08:26→21:59)
[2023-02-05] MEDS: Insulin Lispro 100 Units/ML 3 ML Vial SUBCUT SCH ×3 (08:29→16:23)
[2023-02-05] MEDS: Enoxaparin 30 MG/0.3 ML Syringe SUBCUT SCH (08:29)
[2023-02-05] MEDS: Cholestyramine/Sucrose Powder 4 GM Packet PO SCH (11:22)
[2023-02-05] MEDS ORDERED: Hydrochlorothiazide 25 MG Tab PO ONE (12:00)
[2023-02-05] MEDS: Thiamine 100 MG Tab PO SCH (21:59)
[2023-02-05] MEDS: Simvastatin 10 MG Tab PO SCH (21:59)
[2023-02-05] MEDS: Loperamide 2 MG Cap PO PRN (21:59)
[2023-02-05] MEDS: Gabapentin 100 MG Cap PO SCH (21:59)
[2023-02-05] MEDS: HYDROmorphone 0.5 MG/0.5 ML Syringe SUBCUT PRN (22:00)
[2023-02-06] MEDS: SODIUM ZIRCONIUM CYCLOSILICATE PO SCH (05:36)
[2023-02-06 07:22] LABS: ANION GAP 10.6 mEq/L (7-13)
[2023-02-06] MEDS: Amylase/Lipase/Protease 12,000 Unit Cap.CR PO SCH ×3 (07:41→16:16)
[2023-02-06] MEDS: Sodium Bicarbonate 650 MG Tab PO SCH ×3 (08:04→21:43)
[2023-02-06] MEDS: Ferrous Sulfate 325 MG Tab PO SCH ×2 (08:04→17:02)
[2023-02-06] MEDS: Aspirin 81 MG Tab.Chew PO SCH (08:04)
[2023-02-06] MEDS: Pantoprazole 40 MG Tab.CR PO SCH ×2 (08:04→21:43)
[2023-02-06] MEDS: Spironolactone 25 MG Tab PO SCH (08:04)
[2023-02-06] MEDS: Acetaminophen 500 MG Tab PO SCH ×3 (08:05→21:44)
[2023-02-06] MEDS: Furosemide 20 MG Tab PO SCH ×2 (08:06→14:40)
[2023-02-06] MEDS: Enoxaparin 30 MG/0.3 ML Syringe SUBCUT SCH (08:07)
[2023-02-06] MEDS: Metoprolol Succinate 25 MG Tab.ER PO SCH (08:07)
[2023-02-06] MEDS: Insulin Lispro 100 Units/ML 3 ML Vial SUBCUT SCH ×3 (09:12→16:07)
[2023-02-06] MEDS: Cholestyramine/Sucrose Powder 4 GM Packet PO SCH (11:37)
[2023-02-06] MEDS: Acetaminophen/HYDROcodone 325-5 MG Tab PO PRN (11:53)
[2023-02-06] MEDS: Hydrochlorothiazide 25 MG Tab PO SCH (11:53)
[2023-02-06] MEDS: Magnesium Oxide 400 MG Tab PO SCH ×2 (14:40→21:44)
[2023-02-06] MEDS: Mirtazapine 15 MG Tab PO SCH (21:43)
[2023-02-06] MEDS: Thiamine 100 MG Tab PO SCH (21:43)
[2023-02-06] MEDS: Simvastatin 10 MG Tab PO SCH (21:43)
[2023-02-06] MEDS: Gabapentin 100 MG Cap PO SCH (21:44)
[2023-02-06] MEDS: Loperamide 2 MG Cap PO PRN (21:45)
[2023-02-06] MEDS: Albumin Human 25 GM in Premix Bag 1 BAG IV SCH (22:08)
[2023-02-07] MEDS: Loperamide 2 MG Cap PO PRN ×2 (01:31→10:30)
[2023-02-07] MEDS: Albumin Human 25 GM in Premix Bag 1 BAG IV SCH ×3 (01:33→13:34)
[2023-02-07] MEDS: SODIUM ZIRCONIUM CYCLOSILICATE PO SCH (07:40)
[2023-02-07] MEDS: Ferrous Sulfate 325 MG Tab PO SCH ×2 (08:10→17:02)
[2023-02-07] MEDS: Amylase/Lipase/Protease 12,000 Unit Cap.CR PO SCH ×3 (08:10→16:51)
[2023-02-07] MEDS: Furosemide 20 MG Tab PO SCH ×2 (08:10→14:28)
[2023-02-07] MEDS: Insulin Lispro 100 Units/ML 3 ML Vial SUBCUT SCH ×3 (08:11→16:51)
[2023-02-07] MEDS: Spironolactone 25 MG Tab PO SCH (09:19)
[2023-02-07] MEDS: Metoprolol Succinate 25 MG Tab.ER PO SCH (09:20)
[2023-02-07] MEDS: Pantoprazole 40 MG Tab.CR PO SCH ×2 (09:21→20:43)
[2023-02-07] MEDS: Magnesium Oxide 400 MG Tab PO SCH ×2 (09:21→20:44)
[2023-02-07] MEDS: Sodium Bicarbonate 650 MG Tab PO SCH ×3 (09:21→20:43)
[2023-02-07] MEDS: Acetaminophen 500 MG Tab PO SCH ×3 (09:21→20:42)
[2023-02-07] MEDS: Hydrochlorothiazide 25 MG Tab PO SCH (09:21)
[2023-02-07] MEDS: HYDROmorphone 0.5 MG/0.5 ML Syringe SUBCUT PRN (10:40)
[2023-02-07] MEDS: Cholestyramine/Sucrose Powder 4 GM Packet PO SCH (11:54)
[2023-02-07] MEDS: Thiamine 100 MG Tab PO SCH (20:42)
[2023-02-07] MEDS: Gabapentin 100 MG Cap PO SCH (20:42)
[2023-02-07] MEDS: Simvastatin 10 MG Tab PO SCH (20:44)
[2023-02-07] MEDS: Mirtazapine 15 MG Tab PO SCH (20:44)
[2023-02-07] MEDS ORDERED: Phytonadione 5 MG Tab PO ONE (21:00)
[2023-02-08] MEDS: HYDROmorphone 0.5 MG/0.5 ML Syringe SUBCUT PRN ×3 (00:54→21:56)
[2023-02-08] MEDS: SODIUM ZIRCONIUM CYCLOSILICATE PO SCH (05:18)
[2023-02-08] MEDS: Amylase/Lipase/Protease 12,000 Unit Cap.CR PO SCH ×3 (08:06→16:59)
[2023-02-08] MEDS: Furosemide 20 MG Tab PO SCH ×2 (08:07→15:03)
[2023-02-08] MEDS: Pantoprazole 40 MG Tab.CR PO SCH ×2 (08:07→20:48)
[2023-02-08] MEDS: Acetaminophen 500 MG Tab PO SCH ×4 (08:08→20:40)
[2023-02-08] MEDS: Spironolactone 25 MG Tab PO SCH (08:08)
[2023-02-08] MEDS: Magnesium Oxide 400 MG Tab PO SCH ×2 (08:08→20:48)
[2023-02-08] MEDS: Hydrochlorothiazide 25 MG Tab PO SCH (08:08)
[2023-02-08] MEDS: Sodium Bicarbonate 650 MG Tab PO SCH ×3 (08:08→20:48)
[2023-02-08] MEDS: Ferrous Sulfate 325 MG Tab PO SCH ×2 (08:10→17:00)
[2023-02-08] MEDS: Metoprolol Succinate 25 MG Tab.ER PO SCH (08:15)
[2023-02-08] MEDS: Insulin Lispro 100 Units/ML 3 ML Vial SUBCUT SCH ×3 (08:24→18:21)
[2023-02-08] MEDS: Cholestyramine/Sucrose Powder 4 GM Packet PO SCH ×2 (11:18→12:44)
[2023-02-08] MEDS: Enoxaparin 30 MG/0.3 ML Syringe SUBCUT SCH (11:18)
[2023-02-08] MEDS: Aspirin 81 MG Tab.Chew PO SCH (11:18)
[2023-02-08] MEDS: Gabapentin 100 MG Cap PO SCH (20:48)
[2023-02-08] MEDS: Mirtazapine 15 MG Tab PO SCH (20:48)
[2023-02-08] MEDS: Thiamine 100 MG Tab PO SCH (20:48)
[2023-02-08] MEDS: Simvastatin 10 MG Tab PO SCH (20:48)
[2023-02-09] MEDS: Sodium Zirconium Cyclosilicate 5 GM Packet PO SCH (06:38)
[2023-02-09 06:49] LABS: ANION GAP 9.6 mEq/L (7-13)
[2023-02-09] MEDS: Magnesium Oxide 400 MG Tab PO SCH ×2 (08:32→21:09)
[2023-02-09] MEDS: Aspirin 81 MG Tab.Chew PO SCH (08:32)
[2023-02-09] MEDS: Enoxaparin 30 MG/0.3 ML Syringe SUBCUT SCH (08:32)
[2023-02-09] MEDS: Amylase/Lipase/Protease 12,000 Unit Cap.CR PO SCH ×3 (08:32→16:26)
[2023-02-09] MEDS: Sodium Bicarbonate 650 MG Tab PO SCH ×3 (08:33→21:09)
[2023-02-09] MEDS: Metoprolol Succinate 25 MG Tab.ER PO SCH (08:33)
[2023-02-09] MEDS: Furosemide 20 MG Tab PO SCH ×2 (08:34→16:28)
[2023-02-09] MEDS: Spironolactone 25 MG Tab PO SCH (08:34)
[2023-02-09] MEDS: Hydrochlorothiazide 25 MG Tab PO SCH (08:34)
[2023-02-09] MEDS: Ferrous Sulfate 325 MG Tab PO SCH ×2 (08:34→17:06)
[2023-02-09] MEDS: Pantoprazole 40 MG Tab.CR PO SCH ×2 (08:34→21:08)
[2023-02-09] MEDS: Insulin Lispro 100 Units/ML 3 ML Vial SUBCUT SCH ×4 (08:36→17:08)
[2023-02-09] MEDS: Acetaminophen 500 MG Tab PO SCH ×3 (08:57→21:20)
[2023-02-09] MEDS: Cholestyramine/Sucrose Powder 4 GM Packet PO SCH (11:39)
[2023-02-09] MEDS ORDERED: Midodrine 2.5 MG Tab PO ONE (20:41)
[2023-02-09] MEDS ORDERED: Furosemide 20 MG/2 ML VIAL IVPUSH ONE (20:43)
[2023-02-09] MEDS ORDERED: Sodium Chloride 0.9% 250 ML IV SCH (20:45)
[2023-02-09] MEDS ORDERED: Albumin Human 25 GM in Premix Bag 1 BAG IV ONE (20:54)
[2023-02-09] MEDS: Simvastatin 10 MG Tab PO SCH (21:08)
[2023-02-09] MEDS: Gabapentin 100 MG Cap PO SCH (21:09)
[2023-02-09] MEDS: Mirtazapine 15 MG Tab PO SCH (21:09)
[2023-02-09] MEDS: Thiamine 100 MG Tab PO SCH (21:21)
[2023-02-10] MEDS: Sodium Zirconium Cyclosilicate 5 GM Packet PO SCH (06:35)
[2023-02-10] MEDS: Furosemide 20 MG Tab PO SCH ×2 (06:35→14:27)
[2023-02-10] MEDS: Ferrous Sulfate 325 MG Tab PO SCH ×2 (08:26→17:11)
[2023-02-10] MEDS: Amylase/Lipase/Protease 12,000 Unit Cap.CR PO SCH ×3 (08:26→17:11)
[2023-02-10] MEDS: Enoxaparin 30 MG/0.3 ML Syringe SUBCUT SCH (08:26)
[2023-02-10] MEDS: Metoprolol Succinate 25 MG Tab.ER PO SCH (08:27)
[2023-02-10] MEDS: Aspirin 81 MG Tab.Chew PO SCH (08:27)
[2023-02-10] MEDS: Spironolactone 25 MG Tab PO SCH (08:27)
[2023-02-10] MEDS: Acetaminophen 500 MG Tab PO SCH ×2 (08:27→14:26)
[2023-02-10] MEDS: Hydrochlorothiazide 25 MG Tab PO SCH (08:28)
[2023-02-10] MEDS: Magnesium Oxide 400 MG Tab PO SCH ×2 (08:28→20:14)
[2023-02-10] MEDS: Sodium Bicarbonate 650 MG Tab PO SCH ×3 (08:28→20:14)
[2023-02-10] MEDS: Pantoprazole 40 MG Tab.CR PO SCH ×2 (08:28→20:14)
[2023-02-10] MEDS: Insulin Lispro 100 Units/ML 3 ML Vial SUBCUT SCH ×3 (08:35→17:13)
[2023-02-10] MEDS: Cholestyramine/Sucrose Powder 4 GM Packet PO SCH (12:22)
[2023-02-10] MEDS: Thiamine 100 MG Tab PO SCH (20:14)
[2023-02-10] MEDS: Simvastatin 10 MG Tab PO SCH (20:14)
[2023-02-10] MEDS: Gabapentin 100 MG Cap PO SCH (20:14)
[2023-02-10] MEDS: Mirtazapine 15 MG Tab PO SCH (20:14)
[2023-02-10] MEDS: HYDROmorphone 0.5 MG/0.5 ML Syringe SUBCUT PRN (22:26)
[2023-02-11] MEDS: Sodium Zirconium Cyclosilicate 5 GM Packet PO SCH (06:16)
[2023-02-11] MEDS: Furosemide 20 MG Tab PO SCH ×2 (06:17→14:10)
[2023-02-11] MEDS: Loperamide 2 MG Cap PO PRN (06:34)
[2023-02-11] MEDS: Amylase/Lipase/Protease 12,000 Unit Cap.CR PO SCH ×3 (07:29→17:10)
[2023-02-11] MEDS: Magnesium Oxide 400 MG Tab PO SCH ×3 (07:29→20:33)
[2023-02-11] MEDS: Pantoprazole 40 MG Tab.CR PO SCH ×3 (07:29→20:33)
[2023-02-11] MEDS: Aspirin 81 MG Tab.Chew PO SCH ×2 (07:30→08:21)
[2023-02-11] MEDS: Sodium Bicarbonate 650 MG Tab PO SCH ×4 (07:30→20:33)
[2023-02-11] MEDS: Spironolactone 25 MG Tab PO SCH ×2 (07:30→08:21)
[2023-02-11] MEDS: Hydrochlorothiazide 25 MG Tab PO SCH ×2 (07:30→08:21)
[2023-02-11] MEDS: Enoxaparin 30 MG/0.3 ML Syringe SUBCUT SCH ×2 (07:31→08:21)
[2023-02-11] MEDS: Metoprolol Succinate 25 MG Tab.ER PO SCH ×2 (07:32→08:22)
[2023-02-11] MEDS: Ferrous Sulfate 325 MG Tab PO SCH ×2 (07:34→17:10)
[2023-02-11] MEDS: Insulin Lispro 100 Units/ML 3 ML Vial SUBCUT SCH ×3 (08:24→17:09)
[2023-02-11] MEDS: Cholestyramine/Sucrose Powder 4 GM Packet PO SCH (11:53)
[2023-02-11] MEDS: HYDROmorphone 0.5 MG/0.5 ML Syringe SUBCUT PRN (20:30)
[2023-02-11] MEDS: Mirtazapine 15 MG Tab PO SCH (20:33)
[2023-02-11] MEDS: Thiamine 100 MG Tab PO SCH (20:33)
[2023-02-11] MEDS: Gabapentin 100 MG Cap PO SCH (20:33)
[2023-02-11] MEDS: Simvastatin 10 MG Tab PO SCH (20:33)
[2023-02-12] MEDS: Sodium Zirconium Cyclosilicate 5 GM Packet PO SCH (06:11)
[2023-02-12] MEDS: Furosemide 20 MG Tab PO SCH ×2 (06:12→14:09)
[2023-02-12] MEDS: Enoxaparin 30 MG/0.3 ML Syringe SUBCUT SCH (08:01)
[2023-02-12] MEDS: Spironolactone 25 MG Tab PO SCH (08:01)
[2023-02-12] MEDS: Amylase/Lipase/Protease 12,000 Unit Cap.CR PO SCH ×3 (08:02→16:39)
[2023-02-12] MEDS: Ferrous Sulfate 325 MG Tab PO SCH ×2 (08:02→17:07)
[2023-02-12] MEDS: Metoprolol Succinate 25 MG Tab.ER PO SCH (08:02)
[2023-02-12] MEDS: Aspirin 81 MG Tab.Chew PO SCH (08:02)
[2023-02-12] MEDS: Hydrochlorothiazide 25 MG Tab PO SCH (08:02)
[2023-02-12] MEDS: Sodium Bicarbonate 650 MG Tab PO SCH ×3 (08:02→20:03)
[2023-02-12] MEDS: Pantoprazole 40 MG Tab.CR PO SCH ×2 (08:03→20:03)
[2023-02-12] MEDS: Magnesium Oxide 400 MG Tab PO SCH ×2 (08:03→20:03)
[2023-02-12] MEDS: Insulin Lispro 100 Units/ML 3 ML Vial SUBCUT SCH ×3 (08:09→17:08)
[2023-02-12] MEDS: Cholestyramine/Sucrose Powder 4 GM Packet PO SCH (11:37)
[2023-02-12] MEDS: Thiamine 100 MG Tab PO SCH (20:02)
[2023-02-12] MEDS: Simvastatin 10 MG Tab PO SCH (20:03)
[2023-02-12] MEDS: Gabapentin 100 MG Cap PO SCH (20:03)
[2023-02-12] MEDS: Mirtazapine 15 MG Tab PO SCH (20:03)
[2023-02-13] MEDS: Sodium Zirconium Cyclosilicate 5 GM Packet PO SCH (05:14)
[2023-02-13 06:10] LABS: ANION GAP 7.8 mEq/L (7-13)
[2023-02-13] MEDS ORDERED: Potassium Chloride 10 MEQ Tab.ER PO SCH (08:00)
[2023-02-13] MEDS: Insulin Lispro 100 Units/ML 3 ML Vial SUBCUT SCH ×2 (08:01→11:51)
[2023-02-13] MEDS: Enoxaparin 30 MG/0.3 ML Syringe SUBCUT SCH (08:01)
[2023-02-13] MEDS: Aspirin 81 MG Tab.Chew PO SCH (08:01)
[2023-02-13] MEDS: Amylase/Lipase/Protease 12,000 Unit Cap.CR PO SCH ×2 (08:02→11:46)
[2023-02-13] MEDS: Magnesium Oxide 400 MG Tab PO SCH (08:05)
[2023-02-13] MEDS: Sodium Bicarbonate 650 MG Tab PO SCH (08:05)
[2023-02-13] MEDS: Ferrous Sulfate 325 MG Tab PO SCH (08:05)
[2023-02-13] MEDS: Furosemide 20 MG Tab PO SCH (08:06)
[2023-02-13] MEDS: Hydrochlorothiazide 25 MG Tab PO SCH (08:06)
[2023-02-13] MEDS: Spironolactone 25 MG Tab PO SCH (08:08)
[2023-02-13 08:10] VITALS: PULSE 69
[2023-02-13] MEDS: Metoprolol Succinate 25 MG Tab.ER PO SCH (08:10)
[2023-02-13] MEDS: Pantoprazole 40 MG Tab.CR PO SCH (08:15)
[2023-02-13 08:18] VITALS: BP 124/52
[2023-02-13] MEDS: Loperamide 2 MG Cap PO PRN (11:04)
[2023-02-13] MEDS: Cholestyramine/Sucrose Powder 4 GM Packet PO SCH (11:46)
== END 2023-02-13 14:00 | disposition home or self-care (01) | DRG 435 ==
LOC: DL.MS 01-19 16:55
PROVIDERS: ADMIT Internal Medicine; ATTEND Internal Medicine
DX: C25.9 Malignant neoplasm of pancreas, unspecified (principal); E43 Unspecified severe protein-calorie malnutrition; C78.7 Secondary malignant neoplasm of liver and intrahepatic bile duct; R18.8 Other ascites; E78.5 Hyperlipidemia, unspecified; I25.10 Atherosclerotic heart disease of native coronary artery without angina pectoris; D63.1 Anemia in chronic kidney disease; N18.30 Chronic kidney disease, stage 3 unspecified; I12.9 Hypertensive chronic kidney disease with stage 1 through stage 4 chronic kidney disease, or unspecified chronic kidney disease; E11.22 Type 2 diabetes mellitus with diabetic chronic kidney disease; E11.65 Type 2 diabetes mellitus with hyperglycemia; K86.89 Other specified diseases of pancreas; F32.A Depression, unspecified; Z51.5 Encounter for palliative care; Z79.82 Long term (current) use of aspirin; Z79.899 Other long term (current) drug therapy; Z90.49 Acquired absence of other specified parts of digestive tract; Z95.5 Presence of coronary angioplasty implant and graft; Z79.4 Long term (current) use of insulin; Z68.24 Body mass index [BMI] 24.0-24.9, adult; Z86.11 Personal history of tuberculosis; Z88.8 Allergy status to other drugs, medicaments and biological substances; Z88.1 Allergy status to other antibiotic agents; Z88.2 Allergy status to sulfonamides
CPT/HCPCS: 36415; 71045; 74176; 80048; 80053; 82947; 83735; 83880; 85025; 85610; 85730; 97110-GP; 97116-GP; 97161-GP; 97165-GO; 97530-GO; 97535-GO; A9270-GY; J1170; J1650; J1815-GY; J1940; J3490; J7050; P9047